=== PATIENT | female | born 1975 | race Asian ===

== ENCOUNTER 2023-02-23 18:47 | Emergency (ER) | payer OTHER ==
[~2023-02-23] VITALS: Ht 152.4 cm; Wt 77.1 kg
--- NOTE | 2023-02-23 19:37 | NUR ---
Patient came in to the er c/o head and knee pain s/p slipped and fallm hit head on the wall. On room air, breathing evenly and unlabored. Kept comfortable, will continue to monitor accordingly.
[2023-02-23 22:17] VITALS: BP 128/77
--- NOTE | 2023-02-23 22:18 | NUR ---
Patient discharged to home in stable condition. Written and verbal after care instructions given. Patient verbalizes understanding of instruction.
== END 2023-02-23 22:17 | disposition home or self-care (01) ==
LOC: ER 18:47
DX: S00.03XA Contusion of scalp, initial encounter (principal); M25.562 Pain in left knee; I10 Essential (primary) hypertension; Z88.8 Allergy status to other drugs, medicaments and biological substances; W01.0XXA Fall on same level from slipping, tripping and stumbling without subsequent striking against object, initial encounter; Y93.89 Activity, other specified; Y92.89 Other specified places as the place of occurrence of the external cause; Y99.0 Civilian activity done for income or pay
CPT/HCPCS: 70450-TC; 73564-TC